=== PATIENT | male | born 1940 | race Caucasian/White ===

== ENCOUNTER 2017-07-15 12:30 | Inpatient (IN) | payer MEDICARE ==
[~2017-07-15] VITALS: Ht 175.3 cm; Wt 73.2 kg
--- NOTE | ~2017-07-15 | DS ---
PATIENT'S NAME: KILEY TAYLOR [facility] AGE: 77 Y [address] ROOM: [facility] [place] [place], [place] [address] LOCATION: GPCU ADMIT DATE: 07/15/2017 Discharge Summary DISCHARGE DATE: 07/17/2017 FAMILY PHYSICIAN: PHYSICIAN, NO ATTENDING PHYSICIAN: Isaiah Patel PRINCIPAL DIAGNOSES: 1. Cholelithiasis with biliary colic. 2. Status post laparoscopic cholecystectomy. 3. Type 2 diabetes with hyperglycemia. HOSPITAL COURSE: This is a 77-year-old male, who presented with right upper quadrant pain, and nausea, vomiting, and he was noted to have cholelithiasis and biliary colic from that. The patient was initially symptomatically managed and was promptly taken to the OR and had a successful laparoscopic cholecystectomy done. The patient had some postop nausea, vomiting on the day of surgery and was watched overnight for symptomatic management, and the patient is tolerating p.o. intake very well. Pain is very well controlled and ambulating in hallways very well. At this point, the patient is to be discharged home and will follow up with his primary care physician in the next 5 days. PHYSICAL EXAMINATION: GENERAL: The patient is awake, alert, oriented x3, in no acute distress. HEART: S1, S2. Regular rate and rhythm. ABDOMEN: Soft, nontender, nondistended. EXTREMITIES: Without edema. MEDICATIONS: Per MAR. DISPOSITION: Home. Less than 30 minutes were spent in discharge planning and facilitating. MD SIXTO UNGER/modl /[id number] d: 07/18/17 0347 t: 07/20/17 1401, DISCHARGE SUMMARY
--- NOTE | ~2017-07-15 | HP ---
PATIENT'S NAME: LEONARDA MORALESNE Josh [facility] AGE: 77 Y [address] ROOM: [id number] [place] [address] [facility] ADMIT DATE: 07/15/2017 History & Physical DISCHARGE DATE: FAMILY PHYSICIAN: PHYSICIAN, NO ATTENDING PHYSICIAN: ISAIAH PATEL DATE OF SERVICE: REFERRING PHYSICIAN: Dr. Isaiah Patel, hospitalist and GALILEO Lyn in [place], [place]. CHIEF COMPLAINT: Gallbladder disease. REVIEW OF RECORD: Glynn Morales is a pleasant 77-year-old gentleman, who was admitted to the hospital after evaluation at [facility] today per GALILEO Lyn. The patient has a history of not feeling good for the last 4 to 5 months. He says he lost 40 pounds and can explain it; however, he says he does have occasional abdominal swelling, i.e. bloating and occasionally pain in the right upper quadrant. Back in February 2017, he was admitted to the hospital in [place] for similar symptoms of weakness, fatigue, weight loss, and occasional right upper quadrant abdominal pain. At that time, ultrasound showed gallstones and some thickening of the gallbladder wall to 5 mm. He was evaluated by their surgeon and it was felt at that time not to remove the gallbladder. The patient continued to have symptoms and was seen in the clinic yesterday and found to have a bilirubin up to 1.5, white count up to 11 and mild elevation in AST. He was transferred here today for surgical evaluation as well as because of possibility of choledocholithiasis. The patient says he denies any fevers, chills, or jaundice. He still points to the right upper quadrant when he asked where it hurts. He said he has had no other abdominal operations. He has had a remote history of colonoscopy and he said he had a CT scan in [place] before. SOCIAL HISTORY: He is retired. He is . Has healthy children. Lives independently. ILLNESSES: 1. Diabetes mellitus with poorly controlled sugars at this time. 2. Hypertension. 3. Hyperlipidemia. 4. History of myocardial infarction. 5. Allergic rhinitis. 6. Cholelithiasis. 7. Biliary colic. [facility] 77 Y [address] ROOM: [address] [address] LOCATION: GPCU ADMIT DATE: 07/15/2017 History & Physical DISCHARGE DATE: FAMILY PHYSICIAN: PHYSICIAN, NO ATTENDING PHYSICIAN: ISAIAH PATEL 8. Hyperglycemia. 9. Hypothyroidism. SURGERIES: 1. Colonoscopy. 2. Angioplasty. MEDICATIONS: Aspirin, Humalog, Lantus, lisinopril, metformin, Prozac, statin, and Synthroid. ALLERGIES: PENICILLIN LONG-TIME CAUSED A RASH. FAMILY HISTORY: Father had lung cancer. Mother had sudden in her 60s. REVIEW OF SYSTEMS: The patient denies any fevers or chills or jaundice. Denies any history of IV drug use. No hepatitis. Denies any change in his vision or hearing. Denies any shortness of breath or chest pain with activity. Denies any change in his bowel habits or bladder habits. Denies any swollen joints. He does state he has a lot of lesions over his lower extremities. He has never had a diabetic foot ulcer. PHYSICAL EXAMINATION: GENERAL: He is an alert 77-year-old gentleman, who does not appear to be in much distress. HEENT: Head is normocephalic. Sclerae are nonicteric. Mucous membranes are dry. NECK: Supple. There is no adenopathy. LUNGS: Clear to auscultation. HEART: Normal sinus rhythm. ABDOMEN: Nondistended. He has a mild diastasis recti deformity and he is tender to palpation to the right upper quadrant. He does not guard. No palpable mass or hepatomegaly. EXTREMITIES: 2/2 femoral and posterior tibial pulses. He does have cutaneous lesions over his scars like he itches. There is no peripheral edema and he has intact dorsalis pedis pulses bilaterally. IMPRESSION: Likely 4 to 5-month history of intermittent abdominal pain, maybe abdominal bloating, probably interfering with his p.o. intake and known cholelithiasis and cholecystitis history. Ultrasound today again confirmed the cholelithiasis. His liver function tests are mildly elevated. Could have PATIENT'S NAME: GLYNN MORALES [facility] AGE: 77 Y [address] ROOM: [address] [address] LOCATION: GPCU ADMIT DATE: 07/15/2017 History & Physical DISCHARGE DATE: FAMILY PHYSICIAN: PHYSICIAN, NO ATTENDING PHYSICIAN: ISAIAH PATEL passed a small stone debris. I think it would be prudent to go otherwise after controlling his sugars. I do not think there is anything else to offer surgically in hopes of alleviating his symptoms and improving his weight. We discussed the procedure, benefits, and risks of operative intervention including but not limited to infection, bleeding, bile leak, common bile duct injury, abdominal wall hernias, cardiac/pulmonary decompensation, and loss of life. The patient is adamant about proceeding and he agrees to proceed tomorrow morning. Thank you very much for allowing me to participate in his care. PINA BAKER MD WTS/modl /[id number] D: [id number] T: [id number] HISTORY & PHYSICAL
--- NOTE | ~2017-07-15 | HP ---
PATIENT'S NAME: KILEY TAYLOR [facility] AGE: 77 Y [address] ROOM: [id number] [place], [place] [address] LOCATION: GPCU ADMIT DATE: 07/15/2017 History & Physical DISCHARGE DATE: FAMILY PHYSICIAN: PHYSICIAN, NO ATTENDING PHYSICIAN: EMY HAYNES DATE OF SERVICE: 07/15/2017 CHIEF COMPLAINT: Abdominal pain which is chronic in nature, progressive of late. HISTORY OF PRESENT ILLNESS: This is a pleasant 77-year-old male who presents to [facility] today at the referral of a provider in [place] who usually receives care at the [facility] usually in [place], who presents with progressive weakness with associated poorly-controlled sugars, which have been present over months and now with progressive right upper quadrant pain. The patient was seen in clinic yesterday and had labs drawn at that time, which were notable for hyponatremia at 128, a glucose of 446, creatinine of 1.4, bilirubin of 1.8, and an alkaline phosphatase of 142, and at that point, it was recommended that patient be admitted for glucose control as well as evaluation of his right upper quadrant pain. However, he refused and returned home. Today, his PCP reached out and again found that patient's pain had persisted and she requested that patient be transferred to a facility with [facility] given concern for gallbladder pathology owing to right upper quadrant pain. The patient reports that over the past few months he has felt poorly in general. He has noted increasing generalized weakness associated with a 10 to 15-pound weight loss, ongoing loose, floating stools, and increasing difficulty with controlling his sugars. He denies any fevers, chills. No reflux, nausea, vomiting. No chest pain or shortness of breath. Aside from the loose stools, he notes no melena, no hematochezia, and abdominal pain remains isolated to the right upper quadrant. His diabetes control has been poor for some time, and it was recommended that he see an social work associate previously. However, this was not done for financial reasons as well as geographical as the patient does not wish to go to [place] to see Endocrine. Currently upon arrival, the patient reports he is relatively comfortable, but still has achy right upper quadrant pain and otherwise no new complaints aside from what were mentioned above. History is reliably obtained from the patient as records are unavailable at the time of my evaluation pending released from the PA. PAST MEDICAL HISTORY: Per patient's recollection includes: 1. insulin-dependent type 2 diabetes 2. chronic low back pain 3. coronary artery disease with myocardial infarction in 1995 without intervention aside from tPA at that time 4. hyperlipidemia. PATIENT'S NAME: KILEY TAYLOR [facility] AGE: 77 Y [address] ROOM: [place] [address] LOCATION: GPCU ADMIT DATE: 07/15/2017 History & Physical DISCHARGE DATE: FAMILY PHYSICIAN: PHYSICIAN, NO ATTENDING PHYSICIAN: EMY HAYNES SURGICAL HISTORY: Patient endorses no surgical history. FAMILY HISTORY: Completely reviewed and noncontributory to current presentation. SOCIAL HISTORY: The patient is a remote former smoker, none in several years, and denies significant alcohol use. ALLERGIES: THE PATIENT REPORTS NO KNOWN DRUG ALLERGIES. DOES NOTE SEASONAL ALLERGIES. MEDICATIONS: Per patient's recollection includes: 1. Insulin glargine 30 units at bedtime as well as aspart 10 to 20 units b.i.d. with meals, which he adjusts on his own accord based on his sugars. 2. Metformin. 3. Tramadol. 4. Lisinopril. 5. Atorvastatin. 6. Full-dose aspirin. REVIEW OF SYSTEMS: Complete review of systems performed and negative except as noted above in HPI. PHYSICAL EXAMINATION: VITAL SIGNS: Most recent vitals at the time of my evaluation, the patient is afebrile, pulse 78, blood pressure 112/64, saturating 90% on room air. Weight is approximately 160 pounds per weight yesterday in clinic. GENERAL: The patient is no acute distress, elderly male, lying comfortably in bed. HEAD: Normocephalic, atraumatic. EYES: Pupils are equal, round and reactive to light with external ocular muscles intact. No scleral icterus appreciated. ENT: Dry mucous membranes. No nasal discharge. No posterior oropharyngeal erythema. NECK: Supple. No lymphadenopathy. No thyromegaly. No JVD. CARDIOVASCULAR: Regular rate and rhythm with no murmurs, rubs, or gallops appreciated and 2+ pulses bilaterally including radial and dorsalis pedis. RESPIRATIONS: Clear to auscultation bilaterally with normal respiratory effort. Saturating well on room air. ABDOMEN: At this point in time, is nontender diffusely including right upper PATIENT'S NAME: KILEY TAYLOR [facility] AGE: 77 Y [address] ROOM: [id number] [place], [place] [address] LOCATION: GPCU ADMIT DATE: 07/15/2017 History & Physical DISCHARGE DATE: FAMILY PHYSICIAN: PHYSICIAN, NO ATTENDING PHYSICIAN: EMY HAYNES quadrant, soft, nondistended with hyperactive bowel sounds. EXTREMITIES: Without edema bilaterally. Does have what appeared to be several healing punctate lesions over his bilateral lower extremities without appearance of infectious concern including no warmth or erythema. NEUROLOGIC: The patient is alert and oriented x3. Pleasant and cooperative with exam. PSYCHIATRIC: Normal mood and affect. LABS AND IMAGING: Currently pending here. Reviewed outside labs, which are notable for white count of 11, sodium of 128, potassium 4.4, chloride 88, bicarb 26, creatinine 1.4. Glucose 446 (Accu-Chek upon arrival is 356). LFTs notable for AST 47, ALT 36, alkaline phosphatase 142, and bilirubin total of 1.8. Amylase and lipase are also normal. UA did show ketones. ASSESSMENT: 1. Type 2 diabetes, insulin-dependent, poorly controlled with hyperglycemia. 2. Abdominal pain. Possible cholecystitis versus cholangitis. 3. Acute kidney injury versus chronic kidney disease. Await baseline renal function. 4. Hyponatremia, likely secondary to number 1 corrects with correction of glucose. 5. History of coronary artery disease without chest pain acutely. PLAN: We will send labs currently to include CBC, CMP, lactate, urinalysis, hemoglobin A1c, and beta hydroxybutyrate as the patient did have ketones at outside and concern exists for DKA. We will also evaluate the right upper quadrant recent pain given the patient's reported history of gallstones without intervention with a right upper quadrant ultrasound. Depending on initial lab work, we will evaluate for need to initiate DKA protocol and frequent lab monitoring with insulin infusion, though with this degree of hyperglycemia on an ongoing basis, it may be reasonable to institute 24 hours of insulin infusion just to determine needs. We will rehydrate currently with a bolus of normal saline followed by maintenance infusion and maintain patient n.p.o. until ultrasound findings are available. The patient is a full code. We will plan to use heparin for DVT prophylaxis. Time spent on date of admission with [id number] care and review of outside records at this point is 35 minutes. EMY HAYNES MD PATIENT'S NAME: KILEY TAYLOR [facility] AGE: 77 Y [address] ROOM: [place] [address] LOCATION: [facility] ADMIT DATE: 07/15/2017 History & Physical DISCHARGE DATE: FAMILY PHYSICIAN: LEENA HUGGINS ATTENDING PHYSICIAN: EMY HAYNES/adonayl /[id number] D: [id number] T: [id number] HISTORY & PHYSICAL
--- NOTE | ~2017-07-15 | OR ---
PATIENT'S NAME: BRANDON [facility] AGE: 77 Y [address] ROOM: [place] [address] LOCATION: GPCU ADMIT DATE: 07/15/2017 OR/Procedure Report DISCHARGE DATE: FAMILY PHYSICIAN: PHYSICIAN, NO ATTENDING PHYSICIAN: ISAIAH PATEL SURGEON: Daron Arana MD MIDDLE STITCHER: DATE OF PROCEDURE: 07/16/2017 REFERRING PHYSICIAN: 1. Isaiah Patel MD. 2. Shruthi King PA-C in [place]. PREOPERATIVE DIAGNOSES: 1. Acute on chronic cholecystitis, cholelithiasis. 2. Possible choledocholithiasis. POSTOPERATIVE DIAGNOSES: 1. Acute on chronic cholecystitis, cholelithiasis. 2. Normal common bile duct with no filling defect, but mild dilatation. PROCEDURE PERFORMED: Laparoscopic cholecystectomy with intraoperative cholangiogram. ANESTHESIA: General with 23 mL 0.5% Marcaine. SPECIMENS: Gallbladder with stones. FINDINGS: Cholangiogram findings: Cannulation of the cystic duct noted, mildly dilated common bile duct with blunting of the distal end, but free flow of contrast into the duodenal without filling defects. INDICATIONS: The patient is a 77-year-old gentleman who has had about a five- month history of abdominal pain associated with some weight loss, some bloating. He was initially evaluated in [place] back in February, found to have cholelithiasis, but the gallbladder was not removed. He presented to Shruthi King [facility] and found to have abdominal pain and bloating. Bilirubin was 1.8, and was transferred here for possible choledocholithiasis and cholecystitis in consideration of cholecystectomy. DESCRIPTION OF PROCEDURE: After informed consent, the patient was taken to the operating room, and after general endotracheal anesthesia, the patient's abdomen was prepped and draped into a sterile field. Local anesthetic was infiltrated. A time-out was performed. We confirmed the patient, planned procedure, and administration of preop antibiotics. Local anesthetic was PATIENT'S NAME: [facility] AGE: 77 Y [address] ROOM: [place] [address] LOCATION: GPCU ADMIT DATE: 07/15/2017 OR/Procedure Report DISCHARGE DATE: FAMILY PHYSICIAN: PHYSICIAN, NO ATTENDING PHYSICIAN: ISAIAH PATEL infiltrated prior to each incision. First one was made below the umbilicus and carried down to identify the anterior fascia through which a Veress needle was inserted. Pneumoperitoneum created. Trocar and laparoscope were inserted. Safe entry was noted. The remaining trocars were placed in a standard position. The gallbladder had a lot of adhesions of omentum to it, which had to be stripped off. The wall was edematous and pale. It looks like he had acute on chronic cholecystitis. We retracted it cephalad. We had to take down the adhesion of the infundibulum to the duodenum in order to expose the triangle. We freed up the lateral peritoneal attachments of the gallbladder down to the lateral fossa in order to open up our critical view of safety. There were a lot of small vascular branches noted and we had some minor bleeding. We went ahead and isolated out the cystic artery and clipped it. We then dissected out the inflamed cystic duct which was slightly enlarged, and we placed a clip on the gallbladder side. Did a cystotomy and placed our cholangiogram catheter. We had a correct anatomy identified. The cholangiogram findings were as noted above. We removed the catheter and clipped the cystic duct x3 distally. The cystic artery was then divided after being clipped previously. We removed the gallbladder from the liver bed with electrocautery. We placed it into an EndoCatch bag and brought it out through the fascial incision after extracting individual stones. We irrigated until clear and no bleeding evident. The trocars were removed, pneumoperitoneum was released. The midline fascial defects were closed with 0 Vicryl. Skin closed with subcuticular 4-0 Vicryl. Steri-Strips and sterile dressings applied. The patient tolerated the procedure well and transferred to the recovery room in stable condition. MD DM THOMPSON/brenton /[id number] d: 07/16/17 1451 t: 07/27/17 0953, OPERATIVE SUMMARY
[2017-07-15 14:35] LABS: BASOPHIL % 0.4 %; EOSINOPHIL % 0.2 %; HEMATOCRIT 32.7 % (37.0-53.0); HEMOGLOBIN 11.7 g/dL (11.0-16.0); IMMATURE GRANULOCYTE % 0.5 %; LYMPHOCYTE % 12.2 %; MCH 31.8 pg (27.0-34.0); MCHC 35.8 gm/dL (32.0-36.5); MCV 88.9 fl (83.0-98.0); MONOCYTE # 0.5 K/uL (0.0-1.0); MONOCYTE % 6.7 %; MPV 11.9 fl (9.4-12.4); NEUTROPHIL # (ANC) 6.4 K/uL (1.4-9.0); NRBC % 0 /100WBC (0-0.00); PLATELET COUNT 245 K/uL (150-450); RBC 3.68 M/uL (3.50-5.50); RDW-CV 12.1 % (11.9-14.6)
[2017-07-15] MEDS ORDERED: LIPITOR80 MG PO (14:37)
[2017-07-15] MEDS ORDERED: PROZAC20 MG PO (14:37)
[2017-07-15] MEDS ORDERED: GLUCOPHAGE1000 MG PO (14:38)
[2017-07-15] MEDS ORDERED: PRINIVIL OR ZES10 MG PO (14:38)
[2017-07-15] MEDS ORDERED: LEVOTHROID (SY50 MCG PO (14:38)
[2017-07-15] MEDS ORDERED: ECOTRIN325 MG PO (14:39)
[2017-07-15] MEDS ORDERED: LANTUS (IN100 UNIT/M SUB-Q (14:45)
[2017-07-15] MEDS ORDERED: HUMALOG100 UNIT/3 SUB-Q (14:48)
[2017-07-15 14:51] LABS: ALBUMIN 2.4 gm/dL (3.5-5.0); ANION GAP 10.8 (10.0-19.0); CALCIUM 8.5 mg/dL (8.5-10.5); CREATININE 2.1 mg/dL (0.6-1.3); POTASSIUM 3.8 mMol/L (3.7-5.1); TOTAL PROTEIN 6.8 g/dL (6.0-8.4)
[2017-07-15 17:17] LABS: BILIRUBIN URINE NEGATIVE (NEGATIVE); BLOOD URINE NEGATIVE /UL (NEGATIVE); COLOR URINE YELLOW (YELLOW); GLUCOSE URINE 250 mg/dL (NEGATIVE); KETONE URINE NEGATIVE (NEGATIVE); LEUKOCYTES URINE NEGATIVE /UL (NEGATIVE); NITRITE URINE NEGATIVE (NEGATIVE); PROTEIN URINE NEGATIVE (NEGATIVE); SPEC GRAVITY URINE 1.015 (1.003-1.035); TURBIDITY URINE CLEAR (CLEAR); UROBILINOGEN URINE 4 mg/dL (NORMAL)
[2017-07-16 04:36] LABS: BASOPHIL % 0.6 %; EOSINOPHIL # 0.1 K/uL (0.0-0.5); EOSINOPHIL % 1.6 %; HEMATOCRIT 31.8 % (37.0-53.0); HEMOGLOBIN 11.2 g/dL (11.0-16.0); IMMATURE GRANULOCYTE % 0.4 %; LYMPHOCYTE # 1.5 K/uL (0.8-4.0); LYMPHOCYTE % 22.4 %; MCH 31.3 pg (27.0-34.0); MCHC 35.2 gm/dL (32.0-36.5); MCV 88.8 fl (83.0-98.0); MONOCYTE # 0.7 K/uL (0.0-1.0); MONOCYTE % 9.8 %; MPV 11.6 fl (9.4-12.4); NEUTROPHIL # (ANC) 4.4 K/uL (1.4-9.0); NEUTROPHIL % 65.2 %; NRBC % 0 /100WBC (0-0.00); PLATELET COUNT 252 K/uL (150-450); RBC 3.58 M/uL (3.50-5.50); WBC 6.8 K/uL (4.0-11.0)
[2017-07-16 04:53] LABS: INR - (THERAPEUTIC) 0.98 (0.92-1.07); PROTIME 10.3 SECONDS (9.8-11.4); PTT 28 SECONDS (25-32)
[2017-07-16 04:56] LABS: ALBUMIN 2.3 gm/dL (3.5-5.0); ANION GAP 11.6 (10.0-19.0); CALCIUM 8.2 mg/dL (8.5-10.5); CREATININE 1.1 mg/dL (0.6-1.3); POTASSIUM 3.6 mMol/L (3.7-5.1); TOTAL BILIRUBIN 0.7 mg/dL (0.0-1.5); TOTAL PROTEIN 6.6 g/dL (6.0-8.4)
[2017-07-17 04:11] LABS: BASOPHIL % 0.2 %; EOSINOPHIL % 0.3 %; HEMATOCRIT 30.3 % (37.0-53.0); HEMOGLOBIN 10.5 g/dL (11.0-16.0); IMMATURE GRANULOCYTE % 0.3 %; LYMPHOCYTE % 11.7 %; MCH 31.4 pg (27.0-34.0); MCHC 34.7 gm/dL (32.0-36.5); MCV 90.7 fl (83.0-98.0); MONOCYTE # 0.5 K/uL (0.0-1.0); MONOCYTE % 5.7 %; MPV 11.4 fl (9.4-12.4); NEUTROPHIL % 81.8 %; NRBC % 0 /100WBC (0-0.00); PLATELET COUNT 270 K/uL (150-450); RBC 3.34 M/uL (3.50-5.50); RDW-CV 12.4 % (11.9-14.6); WBC 8.6 K/uL (4.0-11.0)
[2017-07-17 04:30] LABS: ALBUMIN 2.1 gm/dL (3.5-5.0); ANION GAP 8.5 (10.0-19.0); CALCIUM 7.7 mg/dL (8.5-10.5); CREATININE 0.8 mg/dL (0.6-1.3); POTASSIUM 3.5 mMol/L (3.7-5.1); TOTAL BILIRUBIN 0.6 mg/dL (0.0-1.5)
== END 2017-07-17 15:00 | disposition disaster alternative care site (69) | DRG 418 ==
LOC: GPCU 13:13
PROVIDERS: Surgery; ADMIT Internal Medicine
PROC: BF10YZZ Fluoroscopy of Bile Ducts using Other Contrast (ICD-10-PCS; principal; 2017-07-15)
PROC: 0FT44ZZ Resection of Gallbladder, Percutaneous Endoscopic Approach (ICD-10-PCS; principal; 2017-07-15)
DX: K82.8 Other specified diseases of gallbladder (principal); K80.12 Calculus of gallbladder with acute and chronic cholecystitis without obstruction; E11.65 Type 2 diabetes mellitus with hyperglycemia; E87.1 Hypo-osmolality and hyponatremia; Z79.4 Long term (current) use of insulin; E78.5 Hyperlipidemia, unspecified; I25.10 Atherosclerotic heart disease of native coronary artery without angina pectoris; Z79.82 Long term (current) use of aspirin
CPT/HCPCS: J1335; J2405; J2550; J3010; J7030; J7060